=== PATIENT | male | born 1990 | race Caucasian/White ===

== ENCOUNTER 2021-05-23 19:10 | Emergency (ER) | payer BC ==
--- NOTE | 2021-05-23 19:40 | EDM.PDOC ---
ED HPI GENERAL MEDICAL PROBLEM - General Chief Complaint: Upper Extremity Injury/Pain Stated Complaint: RT PINKY INJURY Time Seen by Provider: 05/23/21 19:24 Source of Information: Reports: Patient History Limitations: Reports: No Limitations - History of Present Illness INITIAL COMMENTS - FREE TEXT/NARRATIVE: Presents reporting right fifth finger injury last evening. The patient reports he fell and struck his finger with the finger in a flexed position. Then, someone stepped on his flexed finger. No other injuries. He came in because his finger was crooked and swollen. Right Finger-Little Pain Score (Numeric/FACES): 3 - Related Data Allergies Allergy/AdvReac Type Severity Reaction Status Date / Time No Known Allergies Allergy Verified 05/23/21 19:15 Home Meds: Home Meds . [No Known Home Meds] 05/23/21 [History] Past Medical History - Past Health History Medical/Surgical History: Denies Medical/Surgical History - Infectious Disease History Infectious Disease History: Reports: None Social & Family History - Family History Family Medical History: No Pertinent Family History - Tobacco Use Tobacco Use Status *Q: Never Tobacco User - Recreational Drug Use Recreational Drug Use: No Review of Systems - Review of Systems Review Of Systems: Comprehensive ROS is negative, except as noted in HPI. ED EXAM, GENERAL - Physical Exam Exam: See Below Exam Limited By: No Limitations General Appearance: Alert, No Apparent Distress Ears: Normal External Exam Nose: Normal Inspection Throat/Mouth: Normal Inspection Head: Atraumatic, Normocephalic Neck: Normal Inspection Respiratory/Chest: No Respiratory Distress Cardiovascular: Normal Peripheral Pulses Extremities: Other (Right 5th digit mild deformity at the IP and D joint, mild swelling, mild ecchymosis about the nail, full ROM without hesitation or limitation both flex and extend. Brisk capillary refill.) Neurological: Alert, Oriented Psychiatric: Normal Affect, Normal Mood Skin Exam: Warm, Dry, Intact, Normal Color, No Rash Course - Vital Signs Last Recorded V/S: Last Vital Signs Temp 36.3 C 05/23/21 19:16 Pulse 48 L 05/23/21 19:16 Resp 16 05/23/21 19:16 BP 107/59 L 05/23/21 19:16 Pulse Ox 97 05/23/21 19:16 Departure - Departure Time of Disposition: 20:32 Disposition: Home, Self-Care 01 Condition: Good Clinical Impression: Mallet deformity of right little finger - Discharge Information Forms: ED Department Discharge Additional Instructions: The following information is given to patients seen in the emergency department who are being discharged to home. This information is to outline your options for follow-up care. We provide all patients seen in our emergency department w ith a follow-up referral. The need for follow-up, as well as the timing and circumstances, are variable depending upon the specifics of your emergency department visit. If you don't have a primary care physician on staff, we will provide you with a referral. We always advise you to contact your personal physician following an emergency department visit to inform them of the circumstance of the visit and for follow-up with them and/or the need for any referrals to a consulting specialist. The emergency department will also refer you to a specialist when appropriate. This referral assures that you have the opportunity for follow-up care with a specialist. All of these measure are taken in an effort to provide you with optimal care, which includes your follow-up. Under all circumstances we always encourage you to contact your private physician who remains a resource for coordinating your care. When calling for follow-up care, please make the office aware that this follow-up is from your recent emergency room visit. If for any reason you are refused follow-up, please contact the [facility] Emergency Department at and asked to speak to the emergency department charge nurse. 1. Wear splint 2. Cool pack 20 minutes every 3-4 hours as needed for swelling 3. Tylenol or ibuprofen as needed for pain 4. Follow-up with orthopedics. [facility] has been notified that you were seen in the ER. [facility] Professional Building [address] [place] [address], [address] [place] [address] Sepsis Event Note (ED) - Evaluation Sepsis Screening Result: No Definite Risk - Focused Exam Vital Signs: Vital Signs Temp Pulse Resp BP Pulse Ox 05/23/21 19:16 36.3 C 48 L 16 107/59 L 97
--- NOTE | 2021-05-23 20:06 | CR ---
Indication: Trauma, finger was stepped on. Technique: Three views of the right hand 5th digit, AP, oblique, lateral. Comparison: None Findings/Impression: Avulsion fracture at the dorsal base of the 5th digit distal phalanx, compatible with mallet finger. Associated soft tissue swelling is present. No additional fracture identified. Dictated by Yogesh Tejada MD @ 05/23/2021 8:03:49 PM (Electronically Signed)
== END 2021-05-23 20:42 | disposition home or self-care (01) ==
LOC: MW.ED 19:10
DX: M20.011 Mallet finger of right finger(s) (principal)
CPT/HCPCS: 73140-26-F9; 73140-F9; 99283-25